=== PATIENT | female | born 1990 | race Caucasian/White ===

== ENCOUNTER 2017-01-20 12:15 | Emergency (ER) | payer SELFPAY ==
[~2017-01-20] VITALS: Ht 149.9 cm; Wt 71.3 kg
[2017-01-20 15:18] VITALS: BP 125/64
== END 2017-01-20 15:18 | disposition home or self-care (01) ==
LOC: ED 12:15
DX: H60.91 Unspecified otitis externa, right ear (principal); H66.91 Otitis media, unspecified, right ear; B34.9 Viral infection, unspecified